=== PATIENT | male | born 1985 | race Caucasian/White ===

== ENCOUNTER 2022-05-11 19:31 | Emergency (ER) | payer BC ==
[2022-05-11 19:38] VITALS: BP 106/66; PULSE 71; RESP 16; TEMP 98.3
[2022-05-11] MEDS ORDERED: ACETAMINOPHEN TAB 325 MG TAB PO STA (19:39)
[2022-05-11] MEDS ORDERED: IBUPROFEN 400 MG TAB PO STA (21:02)
--- NOTE | 2022-05-11 21:15 | ED ---
General Adult HPI - General Chief complaint: Upper Respiratory Infection Stated complaint: Covid+/fever Time Seen by Provider: 05/11/22 20:43 Source: patient, RN notes reviewed, old records reviewed Mode of arrival: ambulatory Limitations: no limitations - History of Present Illness Initial comments: Patient is a 37-year-old male with no smoking past medical history presents emergency department for upper respiratory infection. Symptoms include rhinorrhea, joint pain. Was exposed to COVID-19. Concerned for possible Covid infection. Was not vaccinated. No other acute complaints at this time. Denies shortness breath, chest pain, abdominal pain, nausea, vomiting. Does endorse decreased appetite. Presents for further evaluation. - Related Data Allergies Allergy/AdvReac Type Severity Reaction Status Date / Time No Known Allergies Allergy Verified 05/11/22 19:38 Review of Systems ROS Statement: Those systems with pertinent positive or pertinent negative responses have been documented in the HPI. Review of Systems: CONST: Denies fever EYES: Denies blurry vision ENT: Denies nasal congestion C/V: Denies Chest pain RESP: Denies shortness of breath GI: Denies abdominal pain : Denies dysuria SKIN: Denies rash. MSK: Endorses joint pain NEURO: Denies headache ROS Other: All systems not noted in ROS Statement are negative. General Exam - General Exam Comments Initial Comments: General: Appears in no acute distress. HEAD: Normal with no signs of head trauma. EYES: PERRLA, EOMI, conjunctiva normal, no discharge. ENT: Hearing grossly intact, normal oropharynx. RESPIRATORY: Clear breath sounds bilaterally. No wheezes, rales, or rhonchi. No hypoxia. No respiratory distress C/V: Regular rate and rhythm. S1 and S2 auscultated, no edema, peripheral pulses 2+ and intact throughout ABD: Abd is soft, nontender, nondistended EXT: Normal range of motion, no obvious deformity SKIN: No rashes or lesions observed on exposed skin. NEURO: Alert and oriented 4. Limitations: no limitations Course Vital Signs 05/11/22 19:35 Temperature 98.3 F Pulse Rate 71 Respiratory 16 Rate Blood Pressure 106/66 O2 Sat by Pulse 98 Oximetry Medical Decision Making - Medical Decision Making Based on the patient's presentation and physical exam, I'm concerned that the patient has an acute COVID-19 infection. Patient was covered positive. Patient's vital signs are within normal limits. His no smoking. Has medical history otherwise. He does not meet criteria for monoclonal antibodies. I did offer and Paxlovid but he declines. Recommended symptomatic management at home and supportive care. Discussed hydration. Discussed quarantine. Discussed obtain pulse oximeter. Vital signs otherwise within normal limits. I believe it is safe to be discharged home. Can use Motrin and Tylenol as needed for joint pain and fevers. He was in agreement this plan. He will be given a work note. I instructed the patient to follow up with their PCP in the next 1-3 days. I explained that the patient should return to the emergency department if they experience any worsening symptoms. Strict return precautions were discussed with the patient. The patient expressed understanding of these instructions. I answered all questions that the patient had. The patient was discharged home in good condition with their prescriptions and follow up information. - Lab Data Lab Results 05/11/22 Range/Units 19:40 Coronavirus (PCR) Detected A (Not Detectd) Disposition Clinical Impression: COVID-19 Disposition: HOME SELF-CARE Condition: Good Instructions (If sedation given, give patient instructions): COVID-19 (Coronavirus Disease 2019) (ED) Additional Instructions: Remain isolated until today symptom-free from COVID-19. Quarantine until then. Obtain a pulse oximeter monitor to monitor pulse oximetry. Is patient prescribed a controlled substance at d/c from ED?: No Referrals: None,Stated [Primary Care Provider] - 1-2 days Time of Disposition: 21:00
== END 2022-05-11 21:24 | disposition home or self-care (01) ==
LOC: EC 19:31
DX: U07.1 COVID-19 (principal)
CPT/HCPCS: 87635; 99283

== ENCOUNTER 2024-01-20 08:59 | Emergency (ER) | payer BC, OTHER ==
--- NOTE | 2024-01-20 09:15 | ED ---
General Adult HPI - General Chief complaint: Shortness of Breath Stated complaint: BEBO,Body Aches Time Seen by Provider: 01/20/24 09:06 Source: patient, RN notes reviewed Mode of arrival: ambulatory Limitations: no limitations - History of Present Illness Initial comments: Patient is a pleasant 39-year-old male presenting to the emergency department with concerns of discomfort left posterior thoracic region. Onset of symptoms was a couple days ago. Discomfort is increased with movement and deep breaths. Patient does have occasional mild cough. Patient states discomfort does limit his breath otherwise is not short of breath. Patient is a smoker. No calf pain or leg swelling. Patient did have a fever 2 days ago. Patient tested negative for COVID-19 and influenza. - Related Data Home Medications Medication Instructions Recorded Confirmed Dm/PE/Acetaminophen/Doxylamine 1 - 2 tab PO Q4H PRN 01/20/24 01/20/24 [[facility] [facility]] Ibuprofen [Motrin Ib] 800 mg PO Q8H PRN 01/20/24 01/20/24 [id number]-DM 600/30MG [Mucinex 1 tab PO Q12HR PRN 01/20/24 01/20/24 Dm] Allergies Allergy/AdvReac Type Severity Reaction Status Date / Time No Known Allergies Allergy Verified 01/20/24 10:08 Review of Systems ROS Statement: Those systems with pertinent positive or pertinent negative responses have been documented in the HPI. ROS Other: All systems not noted in ROS Statement are negative. Constitutional: Reports: as per HPI Eyes: Denies: eye pain Respiratory: Reports: as per HPI, cough Cardiovascular: Denies: chest pain Endocrine: Denies: fatigue Gastrointestinal: Denies: abdominal pain Past Medical History Past Medical History: No Reported History Past Surgical History: No Surgical Hx Reported Smoking Status: Current every day smoker, Vaper General Exam Limitations: no limitations General appearance: alert, in no apparent distress Head exam: Present: normocephalic Eye exam: Present: normal appearance Neck exam: Present: normal inspection Respiratory exam: Present: normal lung sounds bilaterally. Absent: respiratory distress, wheezes, rales, chest wall tenderness, decreased breath sounds Cardiovascular Exam: Present: regular rate, normal rhythm, normal heart sounds GI/Abdominal exam: Present: soft. Absent: tenderness Extremities exam: Present: normal inspection. Absent: pedal edema, calf tenderness Back exam: Present: normal inspection. Absent: tenderness Neurological exam: Present: alert Psychiatric exam: Present: normal affect, normal mood Skin exam: Present: normal color Course Vital Signs 01/20/24 01/20/24 09:02 09:17 Temperature 98 F 98.7 F Pulse Rate 66 69 Respiratory 16 20 Rate Blood Pressure 115/69 121/73 O2 Sat by Pulse 99 Oximetry Medical Decision Making - Medical Decision Making PERC score 0 Was pt. sent in by a medical professional or institution (, PA, WANT AD SUPERVISOR, urgent care, hospital, or senior care...) When possible be specific @ -No Did you speak to anyone other than the patient for history (EMS, parent, family, police, friend...)? What history was obtained from this source @ -No Did you review nursing and triage notes (agree or disagree)? Why? @ -I reviewed and agree with nursing and triage notes Were old charts reviewed (outside hosp., previous admission, EMS record, old EKG, old radiological studies, urgent care reports/EKG's, senior care records)? Report findings @ -No old charts were reviewed Differential Diagnosis (chest pain, altered mental status, abdominal pain women, abdominal pain men, vaginal bleeding, weakness, fever, dyspnea, syncope, headache, dizziness, GI bleed, back pain, seizure, CVA, palpatations, mental health, musculoskeletal)? @ -Differential Fever: Pneumonia, viral URI, endocarditis, myocarditis, pericarditis, otitis, sinusitis, peritonsillar Abscess, retropharyngeal Abscess, epiglottitis, peritonitis, appendicitis, Tanya cystitis, diverticulitis, hepatitis, colitis, UTI, PID, TOA, pyelonephritis, prostatitis, epididymitis, meningitis, encephalitis, pulmonary embolism, CVA, thyroid storm, pancreatitis, adrenal crisis, cavernous sinus thrombosis, this is not meant to be an all-inclusive list. EKG interpreted by me (3pts min.). @ -As above X-rays interpreted by me (1pt min.). @ -Chest x-ray shows no acute process CT interpreted by me (1pt min.). @ -None done U/S interpreted by me (1pt. min.). @ -None done What testing was considered but not performed or refused? (CT, X-rays, U/S, labs)? Why? @ -None What meds were considered but not given or refused? Why? @ -Patient is not a candidate for Tamiflu secondary to onset of symptoms greater than 48 hours Did you discuss the management of the patient with other professionals (professionals i.e. , PA, WANT AD SUPERVISOR, lab, RT, psych nurse, clinical social worker, botany teacher, teacher, real estate officer, housing case manager)? Give summary @ -No Was smoking cessation discussed for >3mins.? @ -No Was critical care preformed (if so, how long)? @ -No Were there social determinants of health that impacted care today? How? (Homelessness, low income, unemployed, alcoholism, drug addiction, transportation, low edu. Level, literacy, decrease access to med. care, care home, rehab)? @ -No Was there de-escalation of care discussed even if they declined (Discuss DNR or withdrawal of care, Hospice)? DNR status @ -No What co-morbidities impacted this encounter? (DM, HTN, Smoking, COPD, CAD, Cancer, CVA, ARF, Chemo, Hep., AIDS, mental health diagnosis, sleep apnea, morbid obesity)? @ -None Was patient admitted / discharged? Hospital course, mention meds given and route, prescriptions, significant lab abnormalities, going to OR and other pertinent info. @ -Patient reevaluated and updated. Patient will be discharged with follow-up with primary care physician Undiagnosed new problem with uncertain prognosis? @ -No Drug Therapy requiring intensive monitoring for toxicity (Heparin, Nitro, Insulin, Cardizem)? @ -No Were any procedures done? @ -No Diagnosis/symptom? @ -Influenza Acute, or Chronic, or Acute on Chronic? @ -Acute Uncomplicated (without systemic symptoms) or Complicated (systemic symptoms)? @ -Default Side effects of treatment? @ -No Exacerbation, Progression, or Severe Exacerbation? @ -No Poses a threat to life or bodily function? How? (Chest pain, [place], [place], pneumonia, PE, COPD, DKA, ARF, appy, cholecystitis, CVA, Diverticulitis, Homicidal, Suicidal, threat to staff... and all critical care pts) @ -No - Lab Data Lab Results 01/20/24 Range/Units 09:16 Influenza Type A (PCR) Not Detected (Not Detectd) Influenza Type B (PCR) Detected A (Not Detectd) RSV (PCR) Not Detected (Not Detectd) SARS-CoV-2 (PCR) Not Detected (Not Detectd) Disposition Clinical Impression: Influenza Disposition: HOME SELF-CARE Condition: Stable Instructions (If sedation given, give patient instructions): Influenza (ED) Additional Instructions: [id number] Motrin or Tylenol as needed. Please follow-up with primary care physician in the next day or 2 for recheck. Return for difficulty breathing, uncontrolled fevers, worsening or changing symptoms or other concerns. Is patient prescribed a controlled substance at d/c from ED?: No Referrals: Macro Butler MD [STAFF PHYSICIAN] - 1-2 days Time of Disposition: 10:20
[2024-01-20] MEDS: KETOROLAC 15 MG/ML 1 ML VIAL IM STA (09:34)
--- NOTE | 2024-01-20 10:21 | XR ---
EXAMINATION TYPE: XR chest 2V DATE OF EXAM: 01/20/2024 COMPARISON: None INDICATION: Cough chest pain and body aches TECHNIQUE: Frontal and lateral views of the chest are obtained. FINDINGS: The heart size is normal. The pulmonary vasculature is normal. The lungs are clear. IMPRESSION: 1. No acute pulmonary process.
[2024-01-20 11:16] VITALS: BP 115/80; PULSE 66; RESP 16; TEMP 98.9
== END 2024-01-20 10:41 | disposition home or self-care (01) ==
LOC: EC 08:59
DX: J10.1 Influenza due to other identified influenza virus with other respiratory manifestations (principal); F17.290 Nicotine dependence, other tobacco product, uncomplicated
CPT/HCPCS: 87636; 71046; 99285; 96372; J1885